=== PATIENT | female | born 1985 | race Caucasian/White ===

== ENCOUNTER 2016-12-31 21:11 | Emergency (ER) | payer OTHER ==
[~2016-12-31] VITALS: Ht 157.5 cm; Wt 52.6 kg
[2016-12-31 21:35] VITALS: BP 122/78
== END 2016-12-31 22:43 | disposition admitted as inpatient to this hospital (09) ==
LOC: ERH 21:11
DX: M54.5 Low back pain (principal); V43.52XA Car driver injured in collision with other type car in traffic accident, initial encounter